=== PATIENT | female | born 1960 | race Caucasian/White ===

== ENCOUNTER 2016-07-29 07:12 | Inpatient (IN) | payer BC ==
[2016-07-29] MEDS ORDERED: ONDANSETRON 4 MG/2 ML VIAL IVP STA (08:07)
[2016-07-29] MEDS ORDERED: SODIUM CHLORIDE 0.9% 1,000 ML IV STA (08:07)
[2016-07-29] MEDS ORDERED: HYDROmorphone 1 MG/ML 1 ML SYRINGE IVP STA (08:07)
[2016-07-29] MEDS ORDERED: RX INFO: IV CONTRAST WAS GIVEN 1 EACH MISC MISCELLANE PRN (08:11)
--- NOTE | 2016-07-29 08:27 | ED ---
GI Bleed HPI <Juan José Stern - Last Filed: 07/29/16 10:28> - General Source: patient Mode of arrival: ambulatory <Ranjan Quinones - Last Filed: 07/29/16 10:40> - General Chief complaint: GI Bleed Stated complaint: abd pain, blood in stool Time Seen by Provider: 07/29/16 07:59 - History of Present Illness Initial comments: 56-year-old female patient presents to emergency department today for complaints of pain and bloody diarrhea. Patient states that yesterday around 5: 00 in the afternoon she had onset of severe, sharp, crampy lower abdominal pain. Patient states that at that time she felt like she could have a bowel movement but was unable to go. Patient states that throughout the night she has had 10 episodes of bloody diarrhea. Patient states she is nauseated but hasn't had any vomiting. Patient states that she has had an episode of bloody bowel movement in the past however she is unable to recall the details or timing of that event. Patient states she is still having pain. She denies any dizziness, weakness, chest pain, shortness of breath, urinary urgency, urinary frequency, or dysuria. She denies any fever or chills. Patient is postmenopausal. Patient did show me a photo with evidence of bright red blood in the toilet bowl. (Ranjan Quinones) - Related Data Home Medications Medication Instructions Recorded Confirmed HYDROcodone/APAP 7.5-325MG [[place] 1 tab PO TID PRN 07/29/16 07/29/16 7.5-325] Ibuprofen [Motrin] 800 mg PO TID 07/29/16 07/29/16 Lisinopril-Hctz 20-25 mg 1 tab PO DAILY 07/29/16 07/29/16 [Zestoretic 20-25] Allergies Allergy/AdvReac Type Severity Reaction Status Date / Time No Known Allergies Allergy Verified 07/29/16 08:24 Review of Systems ROS Other: All systems not noted in ROS Statement are negative. <Juan José Stern - Last Filed: 07/29/16 10:28> ROS Other: All systems not noted in ROS Statement are negative. <Ranjan Quinones - Last Filed: 07/29/16 10:40> ROS Statement: Those systems with pertinent positive or pertinent negative responses have been documented in the HPI. Past Medical History Past Medical History: Hypertension Additional Past Medical History / Comment(s): ARTHRITIS, DIVERTICULITIS History of Any Multi-Drug Resistant Organisms: None Reported Past Surgical History: Hysterectomy, Orthopedic Surgery Additional Past Surgical History / Comment(s): LUNG SX Past Psychological History: No Psychological Hx Reported Smoking Status: Former smoker Past Alcohol Use History: Occasional Past Drug Use History: None Reported <Ranjan Quinones - Last Filed: 07/29/16 10:40> General Exam General appearance: alert, in no apparent distress Eye exam: Present: normal appearance, PERRL, EOMI. Absent: scleral icterus, conjunctival injection, periorbital swelling ENT exam: Present: normal exam, mucous membranes moist Neck exam: Present: normal inspection. Absent: tenderness, meningismus, lymphadenopathy Respiratory exam: Present: normal lung sounds bilaterally. Absent: respiratory distress, wheezes, rales, rhonchi, stridor Cardiovascular Exam: Present: regular rate, normal rhythm, normal heart sounds. Absent: systolic murmur, diastolic murmur, rubs, gallop, clicks GI/Abdominal exam: Present: soft, tenderness (Left lower quadrant), normal bowel sounds. Absent: distended, guarding, rebound, rigid, organomegaly, mass, hernia Rectal exam: Present: normal inspection, normal rectal tone, hemorrhoids (No swelling, erythema, bleeding, or irritation.). Absent: mass, tenderness Back exam: Present: normal inspection. Absent: CVA tenderness (R), CVA tenderness (L) Neurological exam: Present: alert, oriented X3, CN II-XII intact Psychiatric exam: Present: anxious Skin exam: Present: warm, dry, intact, normal color. Absent: rash <Ranjan Quinones - Last Filed: 07/29/16 10:40> Medical Decision Making - Lab Data Result diagrams: 07/29/16 08:25 07/29/16 08:25 <Juan José Stern - Last Filed: 07/29/16 10:28> - Lab Data Result diagrams: 07/29/16 08:25 07/29/16 08:25 - EKG Data -: EKG Interpreted by Ri <aRnjan Quinones - Last Filed: 07/29/16 10:40> - Medical Decision Making The patient was seen and examined. All diagnostics were reviewed. The case was discussed with the PA and I agree with the findings as documented. Case will be discussed with internal medicine shortly. (Juan José Stern) - Lab Data Lab Results 07/29/16 07/29/16 07/29/16 Range/Units 08:25 08:25 08:25 WBC 7.5 (3.8-10.6) k/uL RBC 4.81 (3.80-5.40) m/uL Hgb 13.0 (11.4-16.0) gm/dL Hct 41.0 (34.0-46.0) % MCV 85.2 (80.0-100.0) fL MCH 26.9 (25.0-35.0) pg MCHC 31.6 (31.0-37.0) g/dL RDW 13.2 (11.5-15.5) % Plt Count 276 (150-450) k/uL Neutrophils % 68 % Lymphocytes % 25 % Monocytes % 4 % Eosinophils % 1 % Basophils % 0 % Neutrophils # 5.1 (1.3-7.7) k/uL Lymphocytes # 1.8 (1.0-4.8) k/uL Monocytes # 0.3 (0-1.0) k/uL Eosinophils # 0.1 (0-0.7) k/uL Basophils # 0.0 (0-0.2) k/uL PT 9.9 (9.0-12.0) sec INR 1.0 (<1.1) APTT 25.6 (22.0-30.0) sec Sodium 142 (137-145) mmol/L Potassium 4.2 (3.5-5.1) mmol/L Chloride 102 (98-107) mmol/L Carbon Dioxide 27 (22-30) mmol/L Anion Gap 13 mmol/L BUN 27 H (7-17) mg/dL Creatinine 0.65 (0.52-1.04) mg/dL Est GFR (MDRD) Af Amer >60 (>60 ml/min/1.73 sqM) Est GFR (MDRD) Non-Af >60 (>60 ml/min/1.73 sqM) Glucose 105 H (74-99) mg/dL Calcium 9.6 (8.4-10.2) mg/dL Total Bilirubin 0.6 (0.2-1.3) mg/dL AST 14 (14-36) U/L ALT 25 (9-52) U/L Alkaline Phosphatase 77 (38-126) U/L Total Protein 7.4 (6.3-8.2) g/dL Albumin 4.2 (3.5-5.0) g/dL Amylase 57 (30-110) U/L Lipase 179 (23-300) U/L Stool Occult Blood (Negative) 07/29/16 Range/Units 08:25 WBC (3.8-10.6) k/uL RBC (3.80-5.40) m/uL Hgb (11.4-16.0) gm/dL Hct (34.0-46.0) % MCV (80.0-100.0) fL MCH (25.0-35.0) pg MCHC (31.0-37.0) g/dL RDW (11.5-15.5) % Plt Count (150-450) k/uL Neutrophils % % Lymphocytes % % Monocytes % % Eosinophils % % Basophils % % Neutrophils # (1.3-7.7) k/uL Lymphocytes # (1.0-4.8) k/uL Monocytes # (0-1.0) k/uL Eosinophils # (0-0.7) k/uL Basophils # (0-0.2) k/uL PT (9.0-12.0) sec INR (<1.1) APTT (22.0-30.0) sec Sodium (137-145) mmol/L Potassium (3.5-5.1) mmol/L Chloride (98-107) mmol/L Carbon Dioxide (22-30) mmol/L Anion Gap mmol/L BUN (7-17) mg/dL Creatinine (0.52-1.04) mg/dL Est GFR (MDRD) Af Amer (>60 ml/min/1.73 sqM) Est GFR (MDRD) Non-Af (>60 ml/min/1.73 sqM) Glucose (74-99) mg/dL Calcium (8.4-10.2) mg/dL Total Bilirubin (0.2-1.3) mg/dL AST (14-36) U/L ALT (9-52) U/L Alkaline Phosphatase (38-126) U/L Total Protein (6.3-8.2) g/dL Albumin (3.5-5.0) g/dL Amylase (30-110) U/L Lipase (23-300) U/L Stool Occult Blood Negative (Negative) 07/29/16 08:45 EKG obtained at 0838 reveals normal sinus rhythm with a ventricular rate of 67, WA interval 174, QRS duration 92, QTC 418, QTC 441. No evidence of ST elevation or depression. (Ranjan Quinones) Disposition <Juan José Stern - Last Filed: 07/29/16 10:28> <Ranjan Quinones - Last Filed: 07/29/16 10:40> Clinical Impression: Colitis, GI bleed, Liver lesion Disposition: ADMITTED IP TO THIS [facility] Condition: Good
[2016-07-29 08:52] LABS: Basophils % (A) 0 %; CH 28.4; CHCM 33.5; Eosinophils # (A) 0.1 k/uL (0-0.7); Eosinophils % (A) 1 %; HDW 2.52; Luc # (Auto) 0.15; Luc % (Auto) 2; Lymphocytes # (A) 1.8 k/uL (1.0-4.8); Lymphocytes % (A) 25 %; MCH 26.9 pg (25.0-35.0); MCHC 31.6 g/dL (31.0-37.0); MCV 85.2 fL (80.0-100.0); Mean Platelet Volume 7.3; Monocytes # (A) 0.3 k/uL (0-1.0); Monocytes % (A) 4 %; Neutrophils # (A) 5.1 k/uL (1.3-7.7); Neutrophils % (A) 68 %; RBC 4.81 m/uL (3.80-5.40); RDW 13.2 % (11.5-15.5); WBC 7.5 k/uL (3.8-10.6); WBC (Perox) 7.69
[2016-07-29 08:59] LABS: Partial Thromboplastin Time 25.6 sec (22.0-30.0); Prothrombin Time 9.9 sec (9.0-12.0)
[2016-07-29 09:02] LABS: ALT 25 U/L (9-52); AST 14 U/L (14-36); Alkaline Phosphatase 77 U/L (38-126); Amylase 57 U/L (30-110); Anion Gap 13 mmol/L; Blood Urea Nitrogen 27 mg/dL (7-17); Calcium 9.6 mg/dL (8.4-10.2); Carbon Dioxide 27 mmol/L (22-30); Chloride 102 mmol/L (98-107); Glucose 105 mg/dL (74-99); Non-African American GFR(MDRD) >60 (>60 ml/min/1.73 sqM); Potassium 4.2 mmol/L (3.5-5.1); Sodium 142 mmol/L (137-145); Total Bilirubin 0.6 mg/dL (0.2-1.3); Total Protein 7.4 g/dL (6.3-8.2)
--- NOTE | 2016-07-29 10:08 | CT ---
EXAMINATION TYPE: CT abdomen pelvis w con DATE OF EXAM: 07/29/2016 9:54 AM HISTORY: Pelvic pain, diarrhea and rectal bleeding for [address] DLP: 1658.3mGycm Automated Exposure Control for Dose Reduction was Utilized. CONTRAST: CT scan of the abdomen and pelvis is performed without oral but with IV Contrast, patient injected wi th 100 mL of Omnipaque 300. COMPARISON: None. FINDINGS: LUNG BASES: No significant abnormality is appreciated. LIVER/GB: There is nonspecific 1.7 cm low dense lesion right hepatic lobe on axial image 29. There is a smaller subcentimeter low dense lesion just superior to this on axial image 26 that is too small t o further characterize. Similar to subcentimeter lesions in the hepatic dome on axial images 14 and 1 6 respectively are noted PANCREAS: No significant abnormality is seen. SPLEEN: No significant abnormality is seen. ADRENALS: No significant abnormality is seen. KIDNEYS: There is subcentimeter low dense lesion upper pole level right kidney image 30 series 5 smal l to further characterize per presumed benign. BOWEL: Evaluation bowel is suboptimal due to lack of enteric contrast. There is no suspicious small o r large bowel dilatation seen. Normal-appearing appendix is seen from cecum. There is mild wall thickening with some haziness of adjacent fat in the left lower quadrant at juncti on of left and sigmoid colon suspicious for focal colitis at this level. No well-formed fluid collect ion or abscess is seen. No pneumoperitoneum is identified. UTERUS/ADNEXA: Uterus is surgically absent or markedly atrophic in appearance. LYMPH NODES: No greater than 1cm abdominal or pelvic lymph nodes are appreciated. OSSEOUS STRUCTURES: Spine is straightened. There is advanced multilevel disc space narrowing with vac uum disc phenomenon and spurring as well as sclerosis throughout the lumbar spine is prominent mid to lower lumbar levels. OTHER: No significant additional abnormality is seen. IMPRESSION: 1. Mild focal colitis left lower quadrant at junction of left and sigmoid colon, differential include s infectious and inflammatory etiologies. Clinical correlation advised. 2. Nonspecific liver lesions, dominant lesion measures 1.7 cm in size. Further investigation with mul ti phase liver protocol nonemergent CT or MRI can be performed to better evaluate and characterize if desired.
[2016-07-29] MEDS ORDERED: LEVOFLOXACIN 750MG-D5W PMX 750 MG in DEXTROSE/WATER 1 150ML.BAG IVPB STA (10:20)
[2016-07-29] MEDS ORDERED: metroNIDAZOLE-NS PMX 500 MG in SALINE 1 100ML.BAG IVPB STA (10:20)
[2016-07-29] MEDS ORDERED: ONDANSETRON 4 MG/2 ML VIAL IVP PRN (10:40)
[2016-07-29] MEDS ORDERED: NALOXONE 0.4 MG/ML 1 ML VIAL IV PRN (10:40)
[2016-07-29] MEDS ORDERED: HYDROcodone/APAP 5-325MG 1 EACH TAB PO STA (13:04)
--- NOTE | 2016-07-29 15:30 | P.HPIM ---
History of Present Illness H&P Date: 07/29/16 Chief Complaint: Rectal bleeding This is a 56-year-old female patient of Dr. Carlson. She has a past medical history of hypertension, degenerative disc disease, thoracic aortic aneurysm, lung nodule being monitored, liver lesion being monitored. Patient states that she had sudden onset 2 days ago of blood coming from her rectum sometimes without stool. She states that when she stood up she would have blood leaking from her rectum. She denies any hemorrhoids. The color was bright red. She also states the toilet would be full and this happened about 10 times. She denies eating any recent notes. She states this morning she went into work for about a half hour and she had a run to the bathroom and had stool plus blood and cramping in the lower extremity bilaterally but worse in the left. She denies having any fever or chills. She vomited 1 on Friday night after [place] She has had no further vomiting.. She does state that she had some sweats when she was on the toilet yesterday due to significant pain. She came into [facility] emergency center for evaluation. White count was 7.5, BUN 27, creatinine 0.65. Electrolytes within normal limits. Liver function tests normal, amylase and lipase within normal limits. Occult blood stool was negative. CAT scan of the abdomen showed mild focal colitis in the left lower quadrant junction of the left and sigmoid colon, differential includes infectious and inflammatory etiologies. Nonspecific liver lesions, dominant lesion measures 1.7 cm. Patient was started on a clear liquid diet with Levaquin and Flagyl and a consult was requested with motor vehicle license clerk and patient was admitted to the [facility] floor. She did have a colonoscopy [facility] in the past. This report will be requested. Review of Systems All systems: negative Constitutional: Reports sweats, Denies chills, Denies fever Eyes: denies blurred vision, denies pain Ears, nose, mouth and throat: Denies headache, Denies sore throat Cardiovascular: Reports syncope, Denies chest pain, Denies leg edema, Denies lightheadedness, Denies shortness of breath Respiratory: Denies cough, Denies cough with sputum, Denies dyspnea Gastrointestinal: Reports melena, Denies abdominal pain, Denies coffee ground emesis, Denies diarrhea, Denies hematemesis, Denies hematochezia, Denies nausea , Denies vomiting Genitourinary: Denies dysuria, Denies hematuria Musculoskeletal: Denies myalgias Integumentary: Denies pruritus, Denies rash Neurological: Denies numbness, Denies weakness Psychiatric: Denies anxiety, Denies depression Endocrine: Denies fatigue, Denies weight change Past Medical History Past Medical History: Hypertension, Osteoarthritis (OA), Pneumonia Additional Past Medical History / Comment(s): Degenerative disc disease, thoracic aortic aneurysm, lung nodule being monitored, liver lesion being monitored, L lung pneumonia-had chest tube. History of Any Multi-Drug Resistant Organisms: None Reported Past Surgical History: Hysterectomy, Orthopedic Surgery Additional Past Surgical History / Comment(s): L LUNG thoracentesis, R carpal tunnel release, R wrist cyst removed, R elbow tendon release, colonoscopy. Additional Past Anesthesia/Blood Transfusion Reaction / Comment(s): Pt states she received blood as a . Past Psychological History: No Psychological Hx Reported Additional Psychological History / Comment(s): Pt resides with her spouse. She is independent. Smoking Status: Former smoker Past Alcohol Use History: Occasional Additional Past Alcohol Use History / Comment(s): Pt started smoking as a teen and quit 5 months ago. Past Drug Use History: None Reported - Past Family History Mother Family Medical History: Cancer Additional Family Medical History / Comment(s): Mother of lung cancer at the age of 67yrs. She was a smoker. Father History Unknown: Yes Additional Family Medical History / Comment(s): Father the patient has no contact with him. Sister(s) Additional Family Medical History / Comment(s): has 3 sisters and all have GI problems. One has been diagnosed with diverticulitis. Patient has one half-brother with no major medical problems. Patient has one 13-year-old son with no major problems. Medications and Allergies Home Medications Medication Instructions Recorded Confirmed Type HYDROcodone/APAP 7.5-325MG [[place] 1 tab PO TID PRN 07/29/16 07/29/16 History 7.5-325] Ibuprofen [Motrin] 800 mg PO TID 07/29/16 07/29/16 History Lisinopril-Hctz 20-25 mg 1 tab PO DAILY 07/29/16 07/29/16 History [Zestoretic 20-25] Allergies Allergy/AdvReac Type Severity Reaction Status Date / Time No Known Allergies Allergy Verified 07/29/16 08:24 Physical Exam Vitals: Vital Signs Pulse Resp Pulse Ox 07/29/16 12:57 76 16 97 Gen: This is a 56-year-old female. She is sitting up on the stretcher and appears to be somewhat uncomfortable. Patient is complaining of severe back pain due to the stretcher in the ER. HEENT: Head is atraumatic, normocephalic. Pupils equal, round. Sclerae is anicteric. Conjunctiva pink. Mucous members of the mouth are somewhat dry. NECK: Supple. No JVD. No lymphadenopathy. No thyromegaly. LUNGS: Clear to auscultation. No wheezes or rhonchi. No intercostal retractions. HEART: Regular rate and rhythm. No murmur. ABDOMEN: Soft. Bowel sounds are present. No masses. Left lower quadrant tenderness. EXTREMITIES: No pedal edema. No calf tenderness. Dorsalis pedis +2 bilaterally. NEUROLOGICAL: Patient is awake, alert and oriented x3. Cranial nerves 2 through 12 are grossly intact. Results CBC & Chem 7: 07/29/16 08:25 07/29/16 08:25 Thrombosis Risk Factor Assmnt - DVT/VTE Prophylaxis DVT/VTE Prophylaxis: Pharmacologic Prophylaxis ordered - Choose All That Apply Any of the Below Risk Factors Present?: Yes Each Factor Represents 1 point: Age 41-60 years, Obesity (BMI >25) Other Risk Factors: No Other congenital or acquired thrombophilia - If yes, enter type in comment: No Thrombosis Risk Factor Assessment Total Risk Factor Score: 2 Thrombosis Risk Factor Assessment Level: Low Risk Assessment and Plan Plan: 1. Acute colitis, unspecified with gastrointestinal bleed. Consult with general surgeon and GI. Continue Levaquin and Flagyl. Continue [place] for pain. Continue Zofran as needed for nausea. Diet is clear liquids. 2. Acute GI bleed with stable hemoglobin. Recheck hemoglobin. 3. Hypertension. Continue Zestoretic 1 daily. 4. Degenerative disc disease. Continue [place] as needed. 5. History of liver lesion being monitored by PCP, stable. 6. Lung nodule being monitored by PCP, stable. 7. Thoracic aortic aneurysm, monitored by PCP, stable. 8. Gastrointestinal prophylaxis. Protonix. 9. DVT prophylaxis. Heparin subcu. Patient will be admitted to the hospital for a minimum of 2 night stay. Discharge plan:return home Impression and plan of care have been directed as dictated by the signing physician. Kasia Weeks nurse practitioner acting as scribe for signing physician. Time with Patient: Greater than 30
[2016-07-29] MEDS: metroNIDAZOLE-NS PMX 500 MG in SALINE 1 100ML.BAG IVPB SCH ×2 (16:39→23:04)
[2016-07-29] MEDS ORDERED: HYDROmorphone 1 MG/ML 1 ML SYRINGE IVP PRN (17:25)
[2016-07-30] MEDS: metroNIDAZOLE-NS PMX 500 MG in SALINE 1 100ML.BAG IVPB SCH (07:17)
[2016-07-30] MEDS: HYDROcodone/APAP 7.5-325MG 1 EACH TAB PO PRN ×3 (07:25→22:43)
[2016-07-30] MEDS: LISINOPRIL-HCTZ 20-25 MG 1 EACH TAB PO SCH (07:57)
[2016-07-30] MEDS ORDERED: LEVOFLOXACIN 500MG-D5W PMX 500 MG in DEXTROSE/WATER 1 100ML.BAG IVPB SCH (09:00)
[2016-07-30 09:48] LABS: CH 28.3; CHCM 32.9; HCT 35.1 % (34.0-46.0); HDW 2.53; HGB 11.6 gm/dL (11.4-16.0); MCH 28.5 pg (25.0-35.0); MCHC 33.1 g/dL (31.0-37.0); MCV 86.4 fL (80.0-100.0); Mean Platelet Volume 7.1; RBC 4.07 m/uL (3.80-5.40); RDW 13.3 % (11.5-15.5); WBC 5.8 k/uL (3.8-10.6)
[2016-07-30 10:12] LABS: ALT 21 U/L (9-52); AST 12 U/L (14-36); Alkaline Phosphatase 52 U/L (38-126); Anion Gap 10 mmol/L; Blood Urea Nitrogen 12 mg/dL (7-17); Calcium 8.9 mg/dL (8.4-10.2); Carbon Dioxide 26 mmol/L (22-30); Chloride 103 mmol/L (98-107); Glucose 137 mg/dL (74-99); Non-African American GFR(MDRD) >60 (>60 ml/min/1.73 sqM); Potassium 4.1 mmol/L (3.5-5.1); Sodium 139 mmol/L (137-145); Total Bilirubin 0.7 mg/dL (0.2-1.3); Total Protein 6.1 g/dL (6.3-8.2)
--- NOTE | 2016-07-30 10:33 | P.CONS ---
History of Present Illness - Reason for Consult Consult date: 07/30/16 Rectal bleeding, liver lesions Requesting physician: Michael Meraz - History of Present Illness 56-year-old female (jordan Macdonald) patient of Dr. Ness with a past medical history of remote EtOH abuse quit 6 years ago, hypertension, degenerative disc disease, lung and liver lesions being monitored, and remote nicotine cigarette dependency quit 5 months ago. Patient presents with acute crampy abdominal pain with bright red blood per rectum that started Friday after eating sweet and sour chicken at a local movie theater. Pain mostly in the bilateral lower quadrants with multiple episodes of bright red blood. No history of GI bleed. Last colonoscopy about a year ago at [facility] to her memory was normal. Denies fever, chills, weight loss, coffee-ground emesis or melena. Rectal bleeding stopped yesterday. Towering clear liquids requesting diet advancement. Hemoglobin on admission 13 currently 11.6. Platelet 217. INR 1.0. BUN 27. Creatinine 0.6. CT abdomen and pelvis reported left-sided colitis possible inflammatory possible infectious. No recent antibiotics. Hemoccult testing negative. Additionally consultation is requested for liver lesions. About a year ago patient underwent CT possible MRI of the chest for follow-up of a lung nodule. Incidentally liver lesion was seen. She was advised by her PCP to follow up within a year for reevaluation. Nonspecific liver lesions one measuring 1.7 cm in the right hepatic lobe as well as a small subcentimeter lesion just superior as well as in the hepatic dome were noted on current CT. She is unsure if an MRI of the liver was performed a year ago. She is claustrophobic and does require open MRI studies. No history of hepatitis intravenous drug abuse or known liver disorders. Denies jaundice or acholic stools. Liver function tests within normal limits. Review of Systems Constitutional: Denies fever, chills, sweats, weight gain, or loss. HEENT: Negative for migraines, blurred vision or loss, earaches, drainage, tinnitus, oral mucosal lesions, dysphagia, or odynophagia. CARDIAC: Hypertension. Negative for chest pain, arrhythmias, or palpitation. RESPIRATORY: Lung nodule. Negative for shortness of breath, hemoptysis, cough, or sputum production. GI: See HPI for pertinent findings. : Negative for hematuria, urgency, frequency, polyuria, or dysuria. GYNc: Negative vaginal discharge. MUSCULOSKELETAL: Degenerative joint disease. NEUROLOGIC: Negative for stroke or TIA. ENDOCRINE: Negative for thyroid problems. SKIN: Negative for rash or itching. PSYCHIATRIC: Negative history for depression and anxiety All systems: negative (See HPI) Past Medical History Past Medical History: Hypertension, Osteoarthritis (OA), Pneumonia Additional Past Medical History / Comment(s): Degenerative disc disease, thoracic aortic aneurysm, lung nodule being monitored, liver lesion being monitored, L lung pneumonia-had chest tube. History of Any Multi-Drug Resistant Organisms: None Reported Past Surgical History: Hysterectomy, Orthopedic Surgery Additional Past Surgical History / Comment(s): L LUNG thoracentesis, R carpal tunnel release, R wrist cyst removed, R elbow tendon release, colonoscopy. Additional Past Anesthesia/Blood Transfusion Reaction / Comm: Pt states she received blood as a . Past Psychological History: No Psychological Hx Reported Additional Psychological History / Comment(s): Pt resides with her spouse. She is independent. Smoking Status: Former smoker Past Alcohol Use History: Occasional Additional Past Alcohol Use History / Comment(s): Pt started smoking as a teen and quit 5 months ago. Past Drug Use History: None Reported - Past Family History Mother Family Medical History: Cancer Additional Family Medical History / Comment(s): Mother of lung cancer at the age of 67yrs. She was a smoker. Father History Unknown: Yes Additional Family Medical History / Comment(s): Father the patient has no contact with him. Sister(s) Additional Family Medical History / Comment(s): has 3 sisters and all have GI problems. One has been diagnosed with diverticulitis. Patient has one half-brother with no major medical problems. Patient has one 13-year-old son with no major problems. Medications and Allergies Home Medications Medication Instructions Recorded Confirmed Type HYDROcodone/APAP 7.5-325MG [[place] 1 tab PO TID PRN 07/29/16 07/29/16 History 7.5-325] Ibuprofen [Motrin] 800 mg PO TID 07/29/16 07/29/16 History Lisinopril-Hctz 20-25 mg 1 tab PO DAILY 07/29/16 07/29/16 History [Zestoretic 20-25] Allergies Allergy/AdvReac Type Severity Reaction Status Date / Time No Known Allergies Allergy Verified 07/29/16 08:24 Physical Exam Vitals: Vital Signs Temp Pulse Pulse Pulse Resp BP BP 07/30/16 07:00 96.7 F L 64 19 07/29/16 23:00 97.3 F L 68 20 07/29/16 15:13 97.6 F 76 16 107/73 07/29/16 15:00 98.1 F 67 19 97/66 07/29/16 12:57 76 16 BP Pulse Ox 07/30/16 07:00 115/69 96 07/29/16 23:00 122/69 92 L 07/29/16 15:13 98 07/29/16 15:00 96 07/29/16 12:57 97 Intake and Output 07/29/16 07/30/16 07/30/16 22:59 06:59 14:59 Intake Total 200 100 Balance 200 100 Intake: Oral 200 100 Other: # Voids 2 # Bowel Movements 1 General appearance: The patient is alert, oriented, in no acute distress. HET: Head is normocephalic and atraumatic. Pupils are equal and reactive. Oropharynx is clear without lesions. Neck: Supple without lymphadenopathy. Trachea midline. Heart: S1 S2. Regular rate and rhythm. Lungs: No crackles or wheezes are heard. Abdomen: Soft, very mild left lower quadrant tenderness, nondistended with bowel sounds. No peritoneal signs. No palpable organomegaly or masses. Extremities: Normal skin color and turgor. No cyanosis, rash, ulceration, clubbing, or edema. Radial and pedal pulses are 2/4 bilaterally. Neurological: No focal deficits. Strength and sensation are grossly intact. Results CBC & Chem 7: 07/30/16 08:51 07/29/16 08:25 CT scan - abdomen: report reviewed CT scan - pelvis: report reviewed (Reviewed by Dr. Faith) Assessment and Plan (1) GI bleed Narrative/Plan: Suspect ischemic possible self limiting infectious colitis. Status: Acute (2) Liver lesion Narrative/Plan: Possible benign possible malignant Status: Acute (3) Lung nodule Narrative/Plan: Being followed in outpatient setting by PCP Status: Chronic Plan: 1. Recommend MRI liver with and without contrast. Patient requires open MRI this will be scheduled within a week at [facility]. 2. We'll proceed with hepatitis testing as well as tumor markers and additional serologic testing for autoimmune/chronic liver disorders. 3. Low fiber diet if tolerated without recurrence of rectal bleeding agreeable for discharge. 4. Return to GI office in 1 week at [facility] for reevaluation. Thank you for this kind referral and the opportunity to participate in the care of your patient. This consultation was discussed with Dr. Faith. The impression and plan of care have been directed as dictated.
[2016-07-30] MEDS ORDERED: ACETAMINOPHEN TAB 325 MG TAB PO PRN (11:07)
[2016-07-30 12:26] LABS: Hepatitis B Surface Ag Index 0.05
[2016-07-30 12:32] LABS: Hepatitis B Core IgM Index 0.03
[2016-07-30 12:44] LABS: Hepatitis C Virus IgG Index 0.03
[2016-07-30 12:57] LABS: Hepatitis C Virus IgG Ab Negative (Negative)
[2016-07-30 13:30] LABS: Iron 70 ug/dL (37-170)
[2016-07-30 13:40] LABS: % Iron Saturation 27.3 % (20-50); Total Iron Binding Capacity 256 ug/dL (265-497)
[2016-07-30] MEDS ORDERED: HYDROCORTISONE 1% OINT 28.35 GM TUBE TOPICAL PRN (14:25)
--- NOTE | 2016-07-30 14:31 | P.PN ---
Subjective This is a 56-year-old female patient of Dr. Carlson. She has a past medical history of hypertension, degenerative disc disease, thoracic aortic aneurysm, lung nodule being monitored, liver lesion being monitored. Patient states that she had sudden onset 2 days ago of blood coming from her rectum sometimes without stool. She states that when she stood up she would have blood leaking from her rectum. She denies any hemorrhoids. The color was bright red. She also states the toilet would be full and this happened about 10 times. She denies eating any recent notes. She states this morning she went into work for about a half hour and she had a run to the bathroom and had stool plus blood and cramping in the lower extremity bilaterally but worse in the left. She denies having any fever or chills. She vomited 1 on Friday night [place] She has had no further vomiting.. She does state that she had some sweats when she was on the toilet yesterday due to significant pain. She came into [facility] emergency center for evaluation. White count was 7.5, BUN 27, creatinine 0.65. Electrolytes within normal limits. Liver function tests normal, amylase and lipase within normal limits. Occult blood stool was negative. CAT scan of the abdomen showed mild focal colitis in the left lower quadrant junction of the left and sigmoid colon, differential includes infectious and inflammatory etiologies. Nonspecific liver lesions, dominant lesion measures 1.7 cm. Patient was started on a clear liquid diet with Levaquin and Flagyl and a consult was requested with machine i coremaker and patient was admitted to the [facility] floor. She did have a colonoscopy [facility] in the past. This report will be requested. 07/30: Patient has been seen by gastroenterology with recommendations for MRI of the liver which can be done at [facility], hepatitis testing and tumor markers and autoimmune/chronic liver testing. Patient has advanced to a low fiber diet. Patient to follow-up with GI in 1 week. Anticipate discharge home tomorrow. Repeat hemoglobin 11.6, acute hepatitis panel negative, CEA 0.5. Objective - Vital Signs Vital signs: Vital Signs Temp 96.7 F L 07/30/16 07:00 Pulse 64 07/30/16 07:00 Resp 19 07/30/16 07:00 BP 115/69 04/04/17 07:00 Pulse Ox 96 07/30/16 07:00 Intake & Output 07/29/16 07/30/16 07/30/16 18:59 06:59 18:59 Intake Total 300 Balance 300 Intake: Oral 300 Other: # Voids 2 # Bowel Movements 1 - Exam Gen: This is a 56-year-old female. She is sitting up on the stretcher and appears to be somewhat uncomfortable. Patient is complaining of severe back pain due to the stretcher in the ER. HEENT: Head is atraumatic, normocephalic. Pupils equal, round. Sclerae is anicteric. Conjunctiva pink. Mucous members of the mouth are somewhat dry. NECK: Supple. No JVD. No lymphadenopathy. No thyromegaly. LUNGS: Clear to auscultation. No wheezes or rhonchi. No intercostal retractions. HEART: Regular rate and rhythm. No murmur. ABDOMEN: Soft. Bowel sounds are present. No masses. Left lower quadrant tenderness. EXTREMITIES: No pedal edema. No calf tenderness. Dorsalis pedis +2 bilaterally. NEUROLOGICAL: Patient is awake, alert and oriented x3. Cranial nerves 2 through 12 are grossly intact. - Labs CBC & Chem 7: 07/30/16 08:51 07/30/16 08:51 Labs: Abnormal Lab Results - Last 24 Hours (Table) 07/30/16 Range/Units 08:51 Glucose 137 H (74-99) mg/dL AST 12 L (14-36) U/L Total Protein 6.1 L (6.3-8.2) g/dL Assessment and Plan Plan: 1. Acute colitis, unspecified with gastrointestinal bleed. Consult with general surgeon and GI. Continue Levaquin and Flagyl. Continue [place] for pain. Continue Zofran as needed for nausea. Diet is low fiber. 2. Acute GI bleed with stable hemoglobin. Recheck hemoglobin. 3. Hypertension. Continue Zestoretic 1 daily. 4. Degenerative disc disease. Continue [place] as needed. 5. History of liver lesion being monitored by PCP, stable. MRI as an outpatient. 6. Lung nodule being monitored by PCP, stable. 7. Thoracic aortic aneurysm, monitored by PCP, stable. 8. Gastrointestinal prophylaxis. Protonix. 9. DVT prophylaxis. Heparin subcu. Patient will be admitted to the hospital for a minimum of 2 night stay. Discharge plan:return home tomorrow Impression and plan of care have been directed as dictated by the signing physician. Kasai Weeks nurse practitioner acting as scribe for signing physician. Time with Patient: Greater than 30
[2016-07-30] MEDS ORDERED: DIAZEPAM 5 MG TAB PO ONE (14:51)
[2016-07-30] MEDS: metroNIDAZOLE 500 MG TAB PO SCH ×2 (15:35→23:14)
[2016-07-31] MEDS: LISINOPRIL-HCTZ 20-25 MG 1 EACH TAB PO SCH (07:36)
[2016-07-31] MEDS: metroNIDAZOLE 500 MG TAB PO SCH (07:36)
[2016-07-31 07:44] VITALS: BP 109/76; RESP 16; TEMP 96.4
[2016-07-31 08:30] VITALS: PULSE 67
[2016-07-31] MEDS ORDERED: LEVOFLOXACIN 500 MG TAB PO SCH (09:00)
--- NOTE | 2016-07-31 11:26 | P.PN ---
Subjective Principal diagnosis: Liver lesions, rectal bleeding 56-year-old female admitted with acute abdominal pain and rectal bleeding suspect ischemic colitis possible self limiting infectious colitis. History of liver lesions. AFP CEA markers within normal limits. Hepatitis panel negative. Outpatient liver MRI scheduled 08/10/2016. No recurrence of rectal bleeding. Tolerating regular diet. Objective - Vital Signs Vital signs: Vital Signs Temp 96.4 F L 07/31/16 07:00 Pulse 67 07/31/16 08:00 Resp 16 07/31/16 08:00 BP 109/76 07/31/16 07:00 Pulse Ox 96 07/31/16 07:00 Intake & Output 07/30/16 07/31/16 07/31/16 18:59 06:59 18:59 Intake Total 500 Balance 500 Intake: Oral 500 Other: # Voids 2 1 - Exam General appearance: The patient is alert, oriented, in no acute distress. HET: Head is normocephalic and atraumatic. Pupils are equal and reactive. Oropharynx is clear without lesions. Neck: Supple without lymphadenopathy. Trachea midline. Heart: S1 S2. Regular rate and rhythm. Lungs: No crackles or wheezes are heard. Abdomen: Soft, nontender, nondistended with bowel sounds. No peritoneal signs. No palpable organomegaly or masses. Extremities: Normal skin color and turgor. No cyanosis, rash, ulceration, clubbing, or edema. Radial and pedal pulses are 2/4 bilaterally. Neurological: No focal deficits. Strength and sensation are grossly intact. - Labs CBC & Chem 7: 07/30/16 08:51 07/30/16 08:51 Labs: Abnormal Lab Results - Last 24 Hours (Table) 07/30/16 Range/Units 11:22 TIBC 256 L (265-497) ug/dL Assessment and Plan (1) GI bleed Narrative/Plan: Suspect ischemic possible self limiting infectious colitis. Status: Acute (2) Liver lesion Narrative/Plan: Possible benign possible malignant Status: Acute (3) Lung nodule Narrative/Plan: Being followed in outpatient setting by PCP Status: Chronic Plan: 1. Agreeable for discharge. 2. Low-residue diet 3-5 days. 3. Outpatient liver MRI. 4. Return to GI office in 2 weeks for reevaluation. Assessment and plan a care discussed with Dr. Faith.
--- NOTE | 2016-07-31 14:45 | P.DS ---
Providers Date of admission: 07/29/16 11:20 Expected date of discharge: 07/31/16 Attending physician: Michael Meraz Primary care physician: Neida Carlson [facility] Course: This is a 56-year-old female patient of Dr. Carlson. She has a past medical history of hypertension, degenerative disc disease, thoracic aortic aneurysm, lung nodule being monitored, liver lesion being monitored. Patient states that she had sudden onset 2 days ago of blood coming from her rectum sometimes without stool. She states that when she stood up she would have blood leaking from her rectum. She denies any hemorrhoids. The color was bright red. She also states the toilet would be full and this happened about 10 times. She denies eating any recent notes. She states this morning she went into work for about a half hour and she had a run to the bathroom and had stool plus blood and cramping in the lower extremity bilaterally but worse in the left. She denies having any fever or chills. She vomited 1 on Friday night after [place]. She has had no further vomiting.. She does state that she had some sweats when she was on the toilet yesterday due to significant pain. She came into [facility] emergency center for evaluation. White count was 7.5, BUN 27, creatinine 0.65. Electrolytes within normal limits. Liver function tests normal, amylase and lipase within normal limits. Occult blood stool was negative. CAT scan of the abdomen showed mild focal colitis in the left lower quadrant junction of the left and sigmoid colon, differential includes infectious and inflammatory etiologies. Nonspecific liver lesions, dominant lesion measures 1.7 cm. Patient was started on a clear liquid diet with Levaquin and Flagyl and a consult was requested with racetrack steward and patient was admitted to the [facility] floor. She did have a colonoscopy [facility] in the past. This report will be requested. 07/30: Patient has been seen by gastroenterology with recommendations for MRI of the liver which can be done at [facility], hepatitis testing and tumor markers and autoimmune/chronic liver testing. Patient has advanced to a low fiber diet. Patient to follow-up with GI in 1 week. Anticipate discharge home tomorrow. Repeat hemoglobin 11.6, acute hepatitis panel negative, CEA 0.5. 07/31: Tristen Iraheta is anxious to be discharged home. Pain is well controlled. She'll be discharged home on ciprofloxacin and Flagyl for a ten-day course. Plan for follow-up with GI and MRI as an outpatient. Discharge Diagnoses: 1. Acute colitis, unspecified with gastrointestinal bleed. 2. Acute GI bleed with stable hemoglobin. 3. Hypertension. 4. Degenerative disc disease. 5. History of liver lesion being monitored by PCP, stable. MRI as an outpatient. 6. Lung nodule being monitored by PCP, stable. 7. Thoracic aortic aneurysm, monitored by PCP, stable. Discharge plan:return home Impression and plan of care have been directed as dictated by the signing physician. Kasia Weeks nurse practitioner acting as scribe for signing physician. CC: Dr. Carlson Patient Condition at Discharge: Good Plan - Discharge Summary New Discharge Prescriptions: Ciprofloxacin HCl [Cipro] 500 mg PO Q12HR #20 tablet Fluconazole [Diflucan] 150 mg PO Q72H #3 tab metroNIDAZOLE [Flagyl] 500 mg PO TID #30 tab Discharge Medication List HYDROcodone/APAP 7.5-325MG [[place] 7.5-325] 1 tab PO TID PRN 07/29/16 [History] Ibuprofen [Motrin] 800 mg PO TID 07/29/16 [History] Lisinopril-Hctz 20-25 mg [Zestoretic 20-25] 1 tab PO DAILY 07/29/16 [History] Ciprofloxacin HCl [Cipro] 500 mg PO Q12HR #20 tablet 07/31/16 [Rx] Fluconazole [Diflucan] 150 mg PO Q72H #3 tab 07/31/16 [Rx] metroNIDAZOLE [Flagyl] 500 mg PO TID #30 tab 07/31/16 [Rx] Follow up Appointment(s)/Referral(s): Dorinda Otoole MD [STAFF PHYSICIAN] - 08/06/16 4:30 pm ([facility] office) Neida Carlson MD [Primary Care Provider] - 1 Week (Patient wants to make own appointment.) Patient Instructions/Handouts: Gastrointestinal Bleeding (DC), Ulcerative Colitis (DC) Discharge Disposition: HOME SELF-CARE
== END 2016-07-31 11:29 | disposition home or self-care (01) | DRG 387 ==
LOC: EC 07:12 → 4MS4W 11:20
PROVIDERS: ADMIT Internal Medicine; ATTEND Internal Medicine
DX: K51.511 Left sided colitis with rectal bleeding (principal); I71.2 Thoracic aortic aneurysm, without rupture; K76.9 Liver disease, unspecified; R91.1 Solitary pulmonary nodule; I10 Essential (primary) hypertension; M19.91 Primary osteoarthritis, unspecified site; Z87.891 Personal history of nicotine dependence; Z87.898 Personal history of other specified conditions; Z79.1 Long term (current) use of non-steroidal anti-inflammatories (NSAID); Z79.899 Other long term (current) drug therapy
CPT/HCPCS: 36415; 74177; 80053; 80074; 82103; 82105; 82150; 82272; 82378; 82390; 82728; 83516; 83540; 83550; 83690; 84165; 85025; 85027; 85610; 85730; 86038; 93005; 96361; 96365; 96366; 96367; 96375; 99285

== ENCOUNTER 2017-06-08 11:03 | Emergency (ER) | payer BC ==
[2017-06-08] MEDS ORDERED: SODIUM CHLORIDE 0.9% 1,000 ML IV STA (11:31)
[2017-06-08] MEDS ORDERED: RX INFO: IV CONTRAST WAS GIVEN 1 EACH MISC MISCELLANE PRN (11:31)
[2017-06-08] MEDS ORDERED: HYDROmorphone 2 MG/ML 1 ML SYRINGE IVP STA (11:31)
--- NOTE | 2017-06-08 11:41 | ED ---
Abdominal Pain HPI - General Chief Complaint: Abdominal Pain Stated Complaint: Abdominal pain Time Seen by Provider: 06/08/17 11:19 Source: patient, RN notes reviewed Mode of arrival: ambulatory Limitations: no limitations - History of Present Illness Initial Comments: This is a 56-year-old female with a history of colitis and diverticulitis who states she had the onset 4 days ago of lower abdominal pain. She's had intermittent episodes of pain that sharp crampy dull with associated sweats and nausea. She did have some blood per rectum she states that her last bowel movement she's had diarrhea was 4 days ago the next day was fine in 2 days ago she's recurred. She has had decreased oral intake feels generally weak. Pain currently is 6-7/10 severity. MD Complaint: abdominal pain - Related Data Home Medications Medication Instructions Recorded Confirmed Ibuprofen [Motrin] 800 mg PO TID PRN 07/29/16 06/08/17 Lisinopril-Hctz 20-25 mg 1 tab PO QAM 07/29/16 06/08/17 [Zestoretic 20-25] Gabapentin [Neurontin] 300 mg PO HS 06/08/17 06/08/17 Previous Rx's Medication Instructions Recorded Amoxicillin/Potassium Clav 1 tab PO Q12HR #20 tab 06/08/17 [Augmentin 875-125 Tablet] Dicyclomine [Bentyl] 10 mg PO TID #9 capsule 06/08/17 Hydrocodone/Acetaminophen [[place] 1 each PO Q6HR PRN #20 tab 06/08/17 5-325] Ibuprofen 800 mg PO Q6HR PRN #20 tablet 06/08/17 Allergies Allergy/AdvReac Type Severity Reaction Status Date / Time No Known Allergies Allergy Verified 06/08/17 12:09 Review of Systems ROS Statement: Those systems with pertinent positive or pertinent negative responses have been documented in the HPI. ROS Other: All systems not noted in ROS Statement are negative. Past Medical History Past Medical History: Hypertension, Osteoarthritis (OA), Pneumonia Additional Past Medical History / Comment(s): Degenerative disc disease, thoracic aortic aneurysm, lung nodule being monitored, liver lesion being monitored, L lung pneumonia-had chest tube. History of Any Multi-Drug Resistant Organisms: None Reported Past Surgical History: Hysterectomy, Orthopedic Surgery Additional Past Surgical History / Comment(s): L LUNG thoracentesis, R carpal tunnel release, R wrist cyst removed, R elbow tendon release, colonoscopy. Additional Past Anesthesia/Blood Transfusion Reaction / Comment(s): Pt states she received blood as a . Past Psychological History: No Psychological Hx Reported Smoking Status: Former smoker Past Alcohol Use History: Occasional Past Drug Use History: None Reported - Past Family History Mother Family Medical History: Cancer Additional Family Medical History / Comment(s): Mother of lung cancer at the age of 67yrs. She was a smoker. Father History Unknown: Yes Additional Family Medical History / Comment(s): Father the patient has no contact with him. Sister(s) Additional Family Medical History / Comment(s): has 3 sisters and all have GI problems. One has been diagnosed with diverticulitis. Patient has one half-brother with no major medical problems. Patient has one 13-year-old son with no major problems. General Exam - General Exam Comments Initial Comments: This is a well-developed well-nourished awake alert oriented 3 female Limitations: no limitations General appearance: alert, anxious Head exam: Present: atraumatic, normocephalic, normal inspection Eye exam: Present: normal appearance, PERRL, EOMI. Absent: scleral icterus, conjunctival injection, periorbital swelling ENT exam: Present: normal exam, mucous membranes moist Neck exam: Present: normal inspection. Absent: tenderness, meningismus, lymphadenopathy Respiratory exam: Present: normal lung sounds bilaterally. Absent: respiratory distress, wheezes, rales, rhonchi, stridor Cardiovascular Exam: Present: regular rate, normal rhythm, normal heart sounds. Absent: systolic murmur, diastolic murmur, rubs, gallop, clicks GI/Abdominal exam: Present: soft, tenderness (Mild lower left quadrant tenderness palpation no guarding rebound masses or bruits), normal bowel sounds. Absent: distended, guarding, rebound, rigid Rectal exam: Present: normal inspection (No masses no gross blood) Extremities exam: Present: normal inspection, full ROM, normal capillary refill. Absent: tenderness, pedal edema, joint swelling, calf tenderness Back exam: Present: normal inspection Neurological exam: Present: alert, oriented X3, CN II-XII intact Psychiatric exam: Present: normal affect, normal mood Skin exam: Present: warm, dry, intact, normal color. Absent: rash Course Vital Signs 06/08/17 06/08/17 06/08/17 11:09 12:41 13:52 Temperature 98.8 F 96.5 F L Pulse Rate 94 64 64 Respiratory 18 16 18 Rate Blood Pressure 159/83 108/68 111/74 O2 Sat by Pulse 99 94 L 98 Oximetry Medical Decision Making - Medical Decision Making I did discuss findings with the patient initially I did want to admit the patient in the hospital she would prefer to try outpatient treatment first. I did discuss this with her she will be placed on antibiotics as well as antispasmodic and pain medication. She is a follow-up with her doctor and return if any problems. She has seen Dr. Otoole in the past and is to contact her. - Lab Data Result diagrams: 06/08/17 11:35 06/08/17 11:35 Lab Results 06/08/17 06/08/17 06/08/17 Range/Units 11:35 11:35 11:35 WBC 8.9 (3.8-10.6) k/uL RBC 5.05 (3.80-5.40) m/uL Hgb 14.0 (11.4-16.0) gm/dL Hct 42.8 (34.0-46.0) % MCV 84.7 (80.0-100.0) fL MCH 27.8 (25.0-35.0) pg MCHC 32.8 (31.0-37.0) g/dL RDW 13.3 (11.5-15.5) % Plt Count 263 (150-450) k/uL Neutrophils % 70 % Lymphocytes % 23 % Monocytes % 3 % Eosinophils % 2 % Basophils % 0 % Neutrophils # 6.2 (1.3-7.7) k/uL Lymphocytes # 2.1 (1.0-4.8) k/uL Monocytes # 0.3 (0-1.0) k/uL Eosinophils # 0.2 (0-0.7) k/uL Basophils # 0.0 (0-0.2) k/uL PT (9.0-12.0) sec INR (<1.2) APTT (22.0-30.0) sec Sodium 141 (137-145) mmol/L Potassium 3.8 (3.5-5.1) mmol/L Chloride 100 (98-107) mmol/L Carbon Dioxide 31 H (22-30) mmol/L Anion Gap 10 mmol/L BUN 15 (7-17) mg/dL Creatinine 0.60 (0.52-1.04) mg/dL Est GFR (MDRD) Af Amer >60 (>60 ml/min/1.73 sqM) Est GFR (MDRD) Non-Af >60 (>60 ml/min/1.73 sqM) Glucose 111 H (74-99) mg/dL Calcium 9.8 (8.4-10.2) mg/dL Total Bilirubin 0.7 (0.2-1.3) mg/dL AST 15 (14-36) U/L ALT 20 (9-52) U/L Alkaline Phosphatase 72 (38-126) U/L Total Creatine Kinase 72 (30-135) U/L CK-MB (CK-2) 0.9 (0.0-2.4) ng/mL CK-MB (CK-2) Rel Index 1.3 Troponin I <0.012 (0.000-0.034) ng/mL Total Protein 7.2 (6.3-8.2) g/dL Albumin 4.3 (3.5-5.0) g/dL Amylase 45 (30-110) U/L Lipase 74 (23-300) U/L Urine Color Urine Appearance (Clear) Urine pH (5.0-8.0) Ur Specific [place] (1.001-1.035) Urine Protein (Negative) Urine Glucose (UA) (Negative) Urine Ketones (Negative) Urine Blood (Negative) Urine Nitrite (Negative) Urine Bilirubin (Negative) Urine Urobilinogen (<2.0) mg/dL Ur Leukocyte Esterase (Negative) Stool Occult Blood (Negative) Blood Type Blood Type Recheck Antibody Screen Spec Expiration Date 06/08/17 06/08/17 06/08/17 Range/Units 11:35 11:35 11:35 WBC (3.8-10.6) k/uL RBC (3.80-5.40) m/uL Hgb (11.4-16.0) gm/dL Hct (34.0-46.0) % MCV (80.0-100.0) fL MCH (25.0-35.0) pg MCHC (31.0-37.0) g/dL RDW (11.5-15.5) % Plt Count (150-450) k/uL Neutrophils % % Lymphocytes % % Monocytes % % Eosinophils % % Basophils % % Neutrophils # (1.3-7.7) k/uL Lymphocytes # (1.0-4.8) k/uL Monocytes # (0-1.0) k/uL Eosinophils # (0-0.7) k/uL Basophils # (0-0.2) k/uL PT 9.4 (9.0-12.0) sec INR 0.9 (<1.2) APTT 25.0 (22.0-30.0) sec Sodium (137-145) mmol/L Potassium (3.5-5.1) mmol/L Chloride (98-107) mmol/L Carbon Dioxide (22-30) mmol/L Anion Gap mmol/L BUN (7-17) mg/dL Creatinine (0.52-1.04) mg/dL Est GFR (MDRD) Af Amer (>60 ml/min/1.73 sqM) Est GFR (MDRD) Non-Af (>60 ml/min/1.73 sqM) Glucose (74-99) mg/dL Calcium (8.4-10.2) mg/dL Total Bilirubin (0.2-1.3) mg/dL AST (14-36) U/L ALT (9-52) U/L Alkaline Phosphatase (38-126) U/L Total Creatine Kinase (30-135) U/L CK-MB (CK-2) (0.0-2.4) ng/mL CK-MB (CK-2) Rel Index Troponin I (0.000-0.034) ng/mL Total Protein (6.3-8.2) g/dL Albumin (3.5-5.0) g/dL Amylase (30-110) U/L Lipase (23-300) U/L Urine Color Light Yellow Urine Appearance Clear (Clear) Urine pH 6.0 (5.0-8.0) Ur Specific [place] 1.008 (1.001-1.035) Urine Protein Negative (Negative) Urine Glucose (UA) Negative (Negative) Urine Ketones Negative (Negative) Urine Blood Negative (Negative) Urine Nitrite Negative (Negative) Urine Bilirubin Negative (Negative) Urine Urobilinogen <2.0 (<2.0) mg/dL Ur Leukocyte Esterase Negative (Negative) Stool Occult Blood Negative (Negative) Blood Type Blood Type Recheck Antibody Screen Spec Expiration Date 06/08/17 Range/Units 13:55 WBC (3.8-10.6) k/uL RBC (3.80-5.40) m/uL Hgb (11.4-16.0) gm/dL Hct (34.0-46.0) % MCV (80.0-100.0) fL MCH (25.0-35.0) pg MCHC (31.0-37.0) g/dL RDW (11.5-15.5) % Plt Count (150-450) k/uL Neutrophils % % Lymphocytes % % Monocytes % % Eosinophils % % Basophils % % Neutrophils # (1.3-7.7) k/uL Lymphocytes # (1.0-4.8) k/uL Monocytes # (0-1.0) k/uL Eosinophils # (0-0.7) k/uL Basophils # (0-0.2) k/uL PT (9.0-12.0) sec INR (<1.2) APTT (22.0-30.0) sec Sodium (137-145) mmol/L Potassium (3.5-5.1) mmol/L Chloride (98-107) mmol/L Carbon Dioxide (22-30) mmol/L Anion Gap mmol/L BUN (7-17) mg/dL Creatinine (0.52-1.04) mg/dL Est GFR (MDRD) Af Amer (>60 ml/min/1.73 sqM) Est GFR (MDRD) Non-Af (>60 ml/min/1.73 sqM) Glucose (74-99) mg/dL Calcium (8.4-10.2) mg/dL Total Bilirubin (0.2-1.3) mg/dL AST (14-36) U/L ALT (9-52) U/L Alkaline Phosphatase (38-126) U/L Total Creatine Kinase (30-135) U/L CK-MB (CK-2) (0.0-2.4) ng/mL CK-MB (CK-2) Rel Index Troponin I (0.000-0.034) ng/mL Total Protein (6.3-8.2) g/dL Albumin (3.5-5.0) g/dL Amylase (30-110) U/L Lipase (23-300) U/L Urine Color Urine Appearance (Clear) Urine pH (5.0-8.0) Ur Specific [place] (1.001-1.035) Urine Protein (Negative) Urine Glucose (UA) (Negative) Urine Ketones (Negative) Urine Blood (Negative) Urine Nitrite (Negative) Urine Bilirubin (Negative) Urine Urobilinogen (<2.0) mg/dL Ur Leukocyte Esterase (Negative) Stool Occult Blood (Negative) Blood Type O Positive Blood Type Recheck No Antibody Screen NEGATIVE Spec Expiration Date 06/11/20172354 - EKG Data -: EKG Interpreted by Me EKG shows normal: sinus rhythm (Sinus rhythm with occasional PVCs rate was 87. Interval 166 QRS of 100 QT since QTC 388/466 evidence of incomplete right bundle -branch block.) - Radiology Data Radiology results: report reviewed (I did review the imaging and reports evidence of colitis from the transverse colon to the proximal ascending colon.) , image reviewed Disposition Clinical Impression: Colitis, Abdominal pain Disposition: HOME SELF-CARE Condition: Good Instructions: Abdominal Pain (ED), Colitis (ED) Prescriptions: Amoxicillin/Potassium Clav [Augmentin 875-125 Tablet] 1 tab PO Q12HR #20 tab Dicyclomine [Bentyl] 10 mg PO TID #9 capsule Hydrocodone/Acetaminophen [[place] 5-325] 1 each PO Q6HR PRN #20 tab PRN Reason: Pain Ibuprofen 800 mg PO Q6HR PRN #20 tablet PRN Reason: Pain Referrals: Neida Carlson MD [Primary Care Provider] - 1-2 days
[2017-06-08 11:47] LABS: Appearance,Urine Clear (Clear); Basophils % (A) 0 %; Bilirubin,Urine Negative (Negative); Blood,Urine Negative (Negative); Color,Urine Light Yellow; Eosinophils # (A) 0.2 k/uL (0-0.7); Eosinophils % (A) 2 %; Glucose,Urine (UA) Negative (Negative); HCT 42.8 % (34.0-46.0); Ketones,Urine Negative (Negative); Leukocyte Esterase,Urine Negative (Negative); Lymphocytes # (A) 2.1 k/uL (1.0-4.8); Lymphocytes % (A) 23 %; MCH 27.8 pg (25.0-35.0); MCHC 32.8 g/dL (31.0-37.0); MCV 84.7 fL (80.0-100.0); Mean Platelet Volume 7.5; Monocytes # (A) 0.3 k/uL (0-1.0); Monocytes % (A) 3 %; Neutrophils # (A) 6.2 k/uL (1.3-7.7); Neutrophils % (A) 70 %; Nitrite,Urine Negative (Negative); Platelet Count 263 k/uL (150-450); Protein,Urine Negative (Negative); RBC 5.05 m/uL (3.80-5.40); RDW 13.3 % (11.5-15.5); Specific Gravity,Urine 1.008 (1.001-1.035); Urobilinogen,Urine <2.0 mg/dL (<2.0); WBC 8.9 k/uL (3.8-10.6)
[2017-06-08 11:56] LABS: INR 0.9 (<1.2); Prothrombin Time 9.4 sec (9.0-12.0)
[2017-06-08 12:05] LABS: ALT 20 U/L (9-52); AST 15 U/L (14-36); Albumin 4.3 g/dL (3.5-5.0); Alkaline Phosphatase 72 U/L (38-126); Amylase 45 U/L (30-110); Anion Gap 10 mmol/L; Blood Urea Nitrogen 15 mg/dL (7-17); Calcium 9.8 mg/dL (8.4-10.2); Carbon Dioxide 31 mmol/L (22-30); Chloride 100 mmol/L (98-107); Glucose 111 mg/dL (74-99); Lipase 74 U/L (23-300); Potassium 3.8 mmol/L (3.5-5.1); Sodium 141 mmol/L (137-145); Total Bilirubin 0.7 mg/dL (0.2-1.3); Total Protein 7.2 g/dL (6.3-8.2)
[2017-06-08 12:22] LABS: Creatine Kinase 72 U/L (30-135)
[2017-06-08 12:35] LABS: Creatine Kinase MB 0.9 ng/mL (0.0-2.4); Troponin I <0.012 ng/mL (0.000-0.034)
--- NOTE | 2017-06-08 13:02 | CT ---
EXAMINATION TYPE: CT abdomen pelvis w con DATE OF EXAM: 06/08/2017 REFERENCE: Previous study dated 07/29/2016 HISTORY: abdominal pain HISTORY: Abd pain REFERENCE: NONE CT DLP: 2046.6 mGy Automated exposure control for dose reduction was used. TECHNIQUE: Helical acquisition through the abdomen and pelvis was obtained following the oral ingesti on of without Oral Contrast and following intravenous administration of 100 mL of Omnipaque 300. The data was reformatted in axial, coronal and sagittal projections. FINDINGS: There is mild dependent atelectasis at the lung bases. There is no pleural or pericardial fluid. The heart is upper limits of normal in size. There is a tiny hiatal hernia. There are multiple lesions within the liver. The largest lesion in the posterior segment of the right lobe of the liver measures 1.7 cm, unchanged in size from previous. The other lesions are stable as well. The spleen and gallbladder are normal. Both adrenal glands are normal. Both kidneys demonstrate function and appear morphologically normal. The pancreas is unremarkable. There is no significant retroperitoneal, iliac or inguinal adenopathy. The bladder is unremarkable. The uterus and ovaries are not visualized. There are scattered diverticula in the sigmoid colon. There is no radiographic evidence of diverticul itis. There is mucosal thickening involving the mid and distal transverse colon and also part of the descen ding colon. The appendix is unremarkable. Small bowel loops are normal in caliber. There is degenerative disc disease and facet arthropathy as well as hypertrophic spondylosis in the l umbar spine. IMPRESSION: 1. FINDINGS CONSISTENT WITH LEFT-SIDED COLITIS. 2. MULTIPLE, STABLE HEPATIC LESIONS. 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 3. TINY HIATAL HERNIA. 4. DEGENERATIVE CHANGES WITHIN THE SPINE.
[2017-06-08 13:53] VITALS: RESP 18
[2017-06-08] MEDS ORDERED: AMOXIC-POT CLAV 875-125MG 1 EACH TAB PO STA (15:03)
[2017-06-08 15:17] VITALS: BP 121/82; PULSE 70; TEMP 97.7
== END 2017-06-08 15:16 | disposition home or self-care (01) ==
LOC: EC 11:03
DX: K52.9 Noninfective gastroenteritis and colitis, unspecified (principal); I10 Essential (primary) hypertension; Z87.891 Personal history of nicotine dependence; Z79.899 Other long term (current) drug therapy
CPT/HCPCS: 36415; 93005; 86900; 86901; 80053; 82150; 82550; 82553; 83690; 84484; 85025; 85610; 85730; 86850; 82272; 81003; 74177; 99284; 96374; 96361 ×4; J1170; Q9967

== ENCOUNTER → 2020-06-08 | Outpatient (CLI) | payer BC | END | disposition home or self-care (01) | LOC: LABWHC1 15:24 | PROVIDERS: ATTEND Emergency Medicine | DX: Z20.822 Contact with and (suspected) exposure to COVID-19 (principal) | CPT/HCPCS: U0003; C9803 ==

== ENCOUNTER → 2020-10-06 | Outpatient (CLI) | payer BC ==
[2020-10-06 15:52] LABS: Basophils # (A) 0.1 k/uL (0-0.2); Basophils % (A) 1 %; Eosinophils # (A) 0.1 k/uL (0-0.7); Eosinophils % (A) 2 %; HCT 41.2 % (34.0-46.0); HGB 13.6 gm/dL (11.4-16.0); Lymphocytes # (A) 3.1 k/uL (1.0-4.8); Lymphocytes % (A) 35 %; MCH 28.1 pg (25.0-35.0); MCHC 32.9 g/dL (31.0-37.0); MCV 85.4 fL (80.0-100.0); Monocytes # (A) 0.4 k/uL (0-1.0); Monocytes % (A) 4 %; Neutrophils # (A) 5.1 k/uL (1.3-7.7); Neutrophils % (A) 57 %; Platelet Count 239 k/uL (150-450); RBC 4.83 m/uL (3.80-5.40); RDW 13.5 % (11.5-15.5); WBC 8.9 k/uL (3.8-10.6)
[2020-10-06 16:10] LABS: Potassium 3.9 mmol/L (3.5-5.1)
== END | disposition home or self-care (01) ==
LOC: LABPAT 14:59
PROVIDERS: ATTEND Orthopaedic Surgery
DX: Z01.812 Encounter for preprocedural laboratory examination (principal); M75.41 Impingement syndrome of right shoulder; I45.19 Other right bundle-branch block
CPT/HCPCS: 36415; 80051; 85025; 93005

== ENCOUNTER 2020-10-24 06:03 | Day surgery (SDC) | payer BC ==
[2020-10-18 15:48] VITALS: BMI 34.4
--- NOTE | 2020-10-23 13:53 | HP ---
HISTORY AND PHYSICAL CHIEF COMPLAINT: Right shoulder pain. 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 She is having pain with overhead use and at night. She has tried therapy in addition to injections and medications with only partial temporary relief. She notes it bothers her daily and is severely limiting. PAST MEDICAL HISTORY: Significant for hypertension. PAST SURGICAL HISTORY: Significant for right carpal tunnel release. CURRENT MEDICATIONS: Diltiazem, lisinopril, Lipitor, ibuprofen, and aspirin. ALLERGIES: She denies drug allergies. FAMILY HISTORY: Significant for cancer. SOCIAL HISTORY: Significant for one pack per day tobacco use and social alcohol use. REVIEW OF SYSTEMS: Sixteen-point review of systems is otherwise reviewed and is noncontributory. PHYSICAL EXAMINATION: On examination, the patient is a well-developed, well-nourished female, approximately 5 foot 10, 240 pounds of endomorphic habitus. HEENT exam is nonfocal. Neck is supple. On examination of her right shoulder, she is tender about the anterior subacromial space. She has mild subacromial crepitus. Active range of motion forward elevation 145 degrees, external rotation with the arm side 50 degrees, internal rotation to L2. Motor strength is 5/5 for abduction and external rotation. Magaña, Neer tests are positive. She has pain with cross-body adduction. Her distal neurovascular exam appears intact in the right upper extremity. Previous MRI for the right shoulder report shows evidence of a split tear of the long head of biceps in addition to AC joint arthropathy and rotator cuff tendinosis. IMPRESSION: Right shoulder impingement/rotator cuff tendinosis/biceps tendinosis/acromioclavicular joint arthritis. RECOMMENDATIONS: I talked to the patient at length regarding her condition and treatment options. At this point, she is quite symptomatic and limited because of pain despite extensive conservative measures. After thorough discussion, she opts to proceed with surgery. We will plan to proceed with arthroscopic evaluation with probable subacromial decompression, rotator cuff debridement versus repair, possible biceps tenotomy and distal clavicular resection. We will likely perform that as an outpatient procedure. Risks and benefits were discussed at length in layman's terms. MMODL / IJN: [id number] /
[~2020-10-24 06:03] MED LIST: DEXAMETHASONE SOD PHOSPHATE 4 MG/ML 1 ML VIAL IV ONE; MIDAZOLAM 2 MG/2 ML VIAL IV PRN; ONDANSETRON 4 MG/2 ML VIAL IVP ONE
[2020-10-24] MEDS ORDERED: MIDAZOLAM 2 MG/2 ML VIAL IVP ONE (07:20)
[2020-10-24] MEDS: LACTATED RINGERS 1,000 ML IV SCH ×2 (07:20→09:42)
[2020-10-24] MEDS ORDERED: fentaNYL (PF) 50 MCG/ML 2 ML AMP IVP ONE (07:20)
[2020-10-24] MEDS ORDERED: ePHEDrine SULFATE/0.9% NACL/PF 50 MG/5 ML SYRINGE IV ONE (07:42)
[2020-10-24] MEDS ORDERED: PROPOFOL 10 MG/ML 20 ML VIAL IV ONE (07:42)
[2020-10-24] MEDS ORDERED: SUCCINYLCHOLINE CHLORIDE 100 MG/5 ML SYR IV ONE (07:42)
[2020-10-24] MEDS ORDERED: ROPIVACAINE 5 MG/ML 30 ML VIAL ONE (07:42)
[2020-10-24] MEDS ORDERED: fentaNYL (PF) 50 MCG/ML 2 ML AMP ONE (07:42)
[2020-10-24] MEDS ORDERED: MIDAZOLAM 2 MG/2 ML VIAL ONE (07:42)
[2020-10-24] MEDS ORDERED: LIDOCAINE 1% INJ 10MG/ML (20 ML MDV) ONE (07:42)
[2020-10-24] MEDS ORDERED: KETOROLAC 15 MG/ML 1 ML VIAL ONE (07:42)
[2020-10-24] MEDS ORDERED: PHENYLEPHRINE-0.9% NACL SYG 1,000 MCG/10 ML SYRINGE ONE (07:42)
[2020-10-24] MEDS ORDERED: EPINEPHrine (PF) 1 ML in SODIUM CHLORIDE 0.9% IRRIGATIO 3,000 ML IRRIGATION ONE ×8 (07:45)
--- NOTE | 2020-10-24 09:19 | P.OP ---
Date of Procedure: 10/24/20 Preoperative Diagnosis: Right shoulder impingement/rotator cuff tendinitis/bicipital tendinitis/acromioclavicular joint arthritis Postoperative Diagnosis: Same in addition to high-grade partial-thickness rotator cuff tear Procedure(s) Performed: Right shoulder arthroscopic subacromial decompression/biceps tenotomy/rotator cuff repair/distal clavicular resection Implants: Arthrex 5.5 mm swivel lock anchor 1 Anesthesia: [facility] regional Surgeon: Murphy Rodriguez Inspector Repairer [employer] #1: Ramirez Horn Estimated Blood Loss (ml): 10 Pathology: none sent Condition: stable Disposition: PACU Indications for Procedure: The patient's a 60-year-old female presents with persistent/progressive right shoulder pain despite conservative measures. A discussion of the risks and benefits of operative intervention versus continued conservative measures was made with the patient. She opted to proceed with surgery. Operative risks to include infection, neurovascular injury, development of blood clots, possible tendon rerupture, possible postoperative stiffness need for subsequent procedures was discussed. Informed consent was obtained. Operative Findings: As below Description of Procedure: The patient was brought to the operating room, and after induction of general anesthesia was placed in a beachchair position. A preoperative interscalene block was placed for postoperative analgesia. I examined the right shoulder. There was no gross block to passive motion or gross glenohumeral instability. The right upper extremity was prepped and draped in normal fashion. The bony outlines the acromion, distal clavicle, and coracoid process were outlined with a skin marker. The glenohumeral joint was inflated with 50 mL of saline utilizing a spinal needle from posterior approach. A posterior portal was made through a 5 mm skin incision 1 cm medial and inferior to the posterior lateral border time. A blunt trocar was used to easily into the joint. Diagnostic arthroscopy was performed. An anterior portal was made just lateral to the coracoid process entering the joint above the subscapularis tendon. The subscapularis tendon appeared to be intact. Anterior labrum was intact. The inferior recess was inspected. The posterior labrum was intact. There was a high-grade partial-thickness tear of the long head of the biceps involving interarticular portion. It was elected to proceed with release at this point. This was released from the superior labrum with electrocautery and was allowed to retract to the bicipital groove. On inspection the rotator cuff, a high- grade partial-thickness tear was noted involving the anterior aspect of the supraspinatus. The arthroscope was then placed into the subacromial space. A lateral portal was made 2 centimeters inferior to the anterior lateral border of the acromion. The rotator cuff was then identified and the edges were debrided. This was then easily brought back to the greater tuberosity. The soft tissue on the undersurface of the acromion was debrided with a motorized shaver and electrocautery clearly defining the anterior medial and lateral borders as well as the distal clavicle. An anterior inferior acromioplasty was performed with a motorized radha starting anterolateral, then extending this posteriorly, then extending this medially. I converted to a flat acromion and this was verified in the posterior and lateral viewing portals. The distal clavicle appeared to impinge on the subacromial space therefore the distal 4 mm was resected utilizing a motorized bur. The greater tuberosity was lightly decorticating with a shaver down to a bleeding bony surface. A #2 fiber tape was passed through the rotator cuff and then secured laterally with a 5.5 mm swivel lock anchor with good purchase. Final arthroscopic view showed adequate compression at the footprint. The arthroscope was then removed. The portals were closed with simple 3-0 nylon sutures. A sterile dressing was applied in addition to a sling. The patient was then awoken from general anesthesia and transferred to recovery room in good condition. Blood loss was estimated at 10 mL. No complications were incurred. Sponge and needle counts were correct in the case. Ramirez CHASE assisted and the major components of the case to include arm positioning, anchor placement, and rotator cuff repair.
[2020-10-24 09:24] VITALS: TEMP 96.9
[2020-10-24] MEDS: HYDROmorphone 0.5 MG/0.5 ML SYRINGE IVP PRN ×2 (09:32→09:51)
[2020-10-24 09:34] VITALS: RESP 16
[2020-10-24 11:09] VITALS: BP 118/79; PULSE 78
[2020-10-24] MEDS ORDERED: ONDANSETRON ODT 4 MG TAB PO ONE (11:36)
--- NOTE | 2020-10-24 15:20 | P.ANPRN ---
Procedure Note - Anesthesia - Nerve Block Performed Right Interscalene Single Time Out Performed: Yes (720) Date of Procedure: 10/24/20 Procedure Start Time: Procedure Stop Time: Location of Patient: PreOp Indication: Acute Post-Operative Pain, Requested by Surgeon Specifically requested for management of pain by DrLeia: Murphy Rodriguez Sedation Type: Sedate with meaningful contact maintained Preparation: Sterile Prep Position: Sitting Catheter: None Needle Types: Pajunk Needle Gauge: 21 Ultrasound used to visualize needle placement: Yes Ultrasound used to observe medication spread: Yes Injectate: 0.5% Ropivacaine (see comment for volume) (30cc) Blood Aspirated: No Pain Paresthesia on Injection Noted: No Resistance on Injection: Normal Image Stored and Saved: Yes Events: Uneventful and Well Tolerated
== END 2020-10-24 11:44 | disposition home or self-care (01) ==
LOC: OR 06:03
PROVIDERS: ATTEND Orthopaedic Surgery
DX: M75.101 Unspecified rotator cuff tear or rupture of right shoulder, not specified as traumatic (principal); M75.21 Bicipital tendinitis, right shoulder; M25.811 Other specified joint disorders, right shoulder; M19.011 Primary osteoarthritis, right shoulder; I10 Essential (primary) hypertension; Z87.39 Personal history of other diseases of the musculoskeletal system and connective tissue; Z80.9 Family history of malignant neoplasm, unspecified; E78.5 Hyperlipidemia, unspecified; J44.9 Chronic obstructive pulmonary disease, unspecified; F17.210 Nicotine dependence, cigarettes, uncomplicated; Z79.1 Long term (current) use of non-steroidal anti-inflammatories (NSAID); Z79.82 Long term (current) use of aspirin; Z79.899 Other long term (current) drug therapy
CPT/HCPCS: 64415; 76942; 29826; 29827; 29824; C1894; J2250; J1100; J0690; J2405; J0171; J2001; J3010; J2795; J1885; J2370; J0330; J2704; J1170